=== PATIENT | male | born 1995 | race American Indian/Alaskan Native ===

== ENCOUNTER 2016-10-06 21:41 | Emergency (ER) | payer OTHER ==
[2016-10-07] MEDS ORDERED: FLEXERIL PO ONE (00:38)
--- NOTE | 2016-10-07 00:38 | Emergency Department Report ---
HPI - General Chief Complaint: Extremity Injury, Lower Time Seen by Provider: 10/07/16 00:22 - HPI HPI: This is a 21-year-old female with no prior history presents complaining of right upper leg hip pain times couple of months. Patient states he says he's been experiencing sharp, intermittent, 4 out of 10 intensity, pain that is still on this knee up to his right hip area. Patient states he had no injuries or trauma fall recently. He denies any fevers as chills/nausea vomiting or abdominal pain or chest pain or any other symptoms ED Past Medical Hx - Past Medical History Previous Medical History?: No - Surgical History Past Surgical History?: No - Social History Smoking Status: Never Smoker Substance Use Type: Marijuana - Medications Home Medications: Home Medications Medication Instructions Recorded Confirmed Last Taken Type Cyclobenzaprine [Flexeril] 10 mg PO QHS PRN #20 tablet 10/07/16 Unknown Rx Naproxen [Naprosyn] 500 mg PO BID #30 tablet 10/07/16 Unknown Rx ED Review of Systems ROS: Stated complaint: RIGHT LEG PAIN Other details as noted in HPI Constitutional: denies: chills, fever Eyes: denies: eye pain, eye discharge, vision change ENT: denies: ear pain, throat pain Respiratory: denies: cough, shortness of breath, wheezing Cardiovascular: denies: chest pain, palpitations Endocrine: no symptoms reported Gastrointestinal: denies: abdominal pain, nausea, diarrhea Genitourinary: denies: urgency, dysuria Musculoskeletal: denies: back pain, joint swelling, arthralgia Skin: denies: rash, lesions Neurological: denies: headache, weakness, paresthesias Psychiatric: denies: anxiety, depression Hematological/Lymphatic: denies: easy bleeding, easy bruising Physical Exam - Physical Exam Vital Signs: Vital Signs 10/06/16 22:02 Temperature 98.9 F Pulse Rate 60 Respiratory 18 Rate Blood Pressure 131/73 O2 Sat by Pulse 99 Oximetry Physical Exam: GENERAL: Alert and oriented x3, no apparent distress, Normal Gait, atraumatic. HEAD: Head is normocephalic and a-traumatic. LUNGS: Symetrical with respiration, No wheezing, no rales or crackles, CTAB. HEART: S1, S2 present, regular rate and rhythm without murmur, no rubs, no gallops. Non tender to palpation ABDOMEN: No organomegaly was noted,Positive bowel sounds, soft, and non- distended. . Nontender to palpation on all Quadrants, NO CVA tenderness. EXTREMITIES/MUSCULOSKELETAL: No cyanosis, clubbing, rash, lesions or edema. Full ROM bilaterally. UE/LE Pulses 2+ bilaterally. LE and UE 5+ strength bilaterally, straight leg raise negative bilaterally. No calf tenderness bilaterally. Thighs are nontender to palpation. Right hip mild tenderness to palpation NEUROLOGIC: The patient is cooperative with no focal neurologic deficits. . Normal speech. Normal sensation in bilateral lower extremities, SKIN: Warm and dry, No lesions, No ulceration or induration present. ED Course Vital Signs 10/06/16 22:02 Temperature 98.9 F Pulse Rate 60 Respiratory 18 Rate Blood Pressure 131/73 O2 Sat by Pulse 99 Oximetry ED Medical Decision Making - Medical Decision Making 21-year-old male presents with lumbar radiculopathy ED course: Patient is to Flexeril in the ED Discussed with patient to rest leg and apply heat to the lower right hip muscle groups Discussed the patient to follow up with primary care physician. Discussed for worsening pains return to ED. Discussed some medication of Flexeril and drowsiness effect of Flexeril and not to be taken operating vehicles Critical care attestation.: If time is entered above; I have spent that time in minutes in the direct care of this critically ill patient, excluding procedure time. ED Disposition Clinical Impression: Lumbar radiculopathy Disposition: TO HOME OR SELFCARE Is pt being admited?: No Does the pt Need Aspirin: No Condition: Stable Instructions: Lumbar Radiculopathy (ED) Prescriptions: Cyclobenzaprine [Flexeril] 10 mg PO QHS PRN #20 tablet PRN Reason: Muscle Spasm Naproxen [Naprosyn] 500 mg PO BID #30 tablet Referrals: PRIMARY CAREMD [Primary Care Provider] - 3-5 Days [facility] [Outside] - 3-5 Days [facility] [place] [Outside] - 3-5 Days [facility] [Outside] - 3-5 Days ROYA ACKERMAN MD [Staff Physician] - 3-5 Days Forms: Work/School Release Form(ED), Accompanied Note Time of Disposition: 01:11
[2016-10-07 01:27] VITALS: BP 128/70
== END 2016-10-07 01:30 | disposition home or self-care (01) ==
LOC: ED 21:41
DX: M54.16 Radiculopathy, lumbar region (principal); F12.90 Cannabis use, unspecified, uncomplicated
CPT/HCPCS: 99282

== ENCOUNTER 2017-08-18 23:06 | Emergency (ER) | payer OTHER | END 2017-08-18 23:10 | disposition left against medical advice (07) | LOC: ED 23:06 | DX: Z11.3 Encounter for screening for infections with a predominantly sexual mode of transmission (principal); Z53.21 Procedure and treatment not carried out due to patient leaving prior to being seen by health care provider ==